=== PATIENT | female | born 1995 ===

== ENCOUNTER → 2016-04-10 | Day surgery (SDC) | payer BC, OTHER ==
[2016-03-22 09:29] VITALS: Ht 162.6 cm; Wt 60.0 kg
[~2016-04-10] VITALS: Ht 162.6 cm; Wt 60.0 kg
[~2016-04-10] MED LIST: ATROPINE SULFATE 0.1 MG/ML 5ML SYR IV PRN; BCPILLS PO; BUPIVACAINE/EPINEPHRINE 0.5% MPF 1:200,000 30 ML VIAL ONE; CEFAZOLIN 2000 MG/60 ML D5W IV SCH; DEXAMETHASONE SOD INJ 4 MG/ML VIAL ONE; EpHEDrine SULFATE INJ 50 MG/ML AMP IV PRN; FENTANYL CITRATE INJ 50 MCG/1 ML 2 ML VIAL IV PRN; FENTANYL CITRATE INJ 50 MCG/1 ML 2 ML VIAL ONE; FEXO1TAB46 PO; GLYCOPYRROLATE INJ 0.2 MG/ML VIAL ONE; LACTATED RINGER'S 1000ML 1,000 ML IV SCH; LEVOFLOXACIN 500 MG TAB PO SCH; LIDOCAINE HCL 2% 2 ML VIAL (20MG/ML) ONE; MIDAZOLAM HCL 1 MG/ML 2ML VIAL ONE; MULT-506 PO; NEOSTIGMINE METHYLSULFATE 5 MG/5 ML SYR ONE; ONDANSETRON INJ 2 MG/ML 2 ML VIAL IV PRN; ONDANSETRON INJ 2 MG/ML 2 ML VIAL ONE; PROPOFOL IV EMULSION 10 MG/ML 20 ML VIAL IV ONE; PSEU30TA20 PO; ROPIVACAINE 0.5% 5 MG/ML 30 ML VIAL ONE; SCOPOLAMINE 1.5 MG TDSY TD ONE; SODIUM CHLORIDE 0.9% 1000ML 1,000 ML IV SCH; SPIR50TA2 PO; VNTHFA/IN INH
--- NOTE | 2016-04-10 07:21 | History & Physical Bridge Note ---
H&P Re-Evaluation Bridge Note: I have examined the patient, reviewed the History & Physical and in the interval since the performance of the History & Physical I have noted the following changes of clinical significance: No changes noted
--- NOTE | 2016-04-10 07:23 | Discharge Instructions ---
Discharge Instructions Visit Reason for Visit: Right Glenohumeral Instability Discharge Discharge Diagnosis / Problem: same Discharge Goals Goal(s): Decrease discomfort, Improve function Medications Stopped Medications Name(s): na Restart Stopped Medication(s): use scripts as directed Activity Recommendations Activity Limitations: as noted below Lifting Limitations: until after follow-up appointment Exercise/Sports Limitations: until after follow-up appointment May Resume Sexual Activity: when tolerated Shower/Bathe: keep incision dry Driving or Machine Use: Anesthesia . Post Anesthesia Instructions: If you have had General Anesthesia or IV Sedation: * Do not drive today. * Resume driving when surgeon permits. * Do not make important decisions or sign legal documents today. * Call surgeon for: 1. Temperature elevations greater than 101 degrees F. 2. Uncontrollable pain. 3. Excessive bleeding. 4. Persistent nausea and vomiting. 5. Medication intolerance (nausea, vomiting or rash). * For nausea and vomiting use only clear liquids such as: tea, soda, bouillon until nausea subsides, then gradually increase diet as tolerated. * If you have any concerns or questions, call your surgeon's office. If physician is unavailable and it is an emergency, call 911 or go to the nearest emergency room. . Instructions / Follow-Up Instructions / Follow-Up The following are instructions to follow after "Shoulder Surgery" including, Acromioplasty, Rotator Cuff Repair and Instability Surgery ACTIVITY RECOMMENDATIONS: * Minimize activity after surgery. * No excessive walking, jogging, sports or laboring. * Return to activity is individualized depending on the patient and type of surgery. * Driving is not permitted until at least your first post operative visit. Please ask your doctor when it is safe to resume driving. * Expect increased discomfort with increased activity. Continue to ice the shoulder as needed. SCHOOL/WORK RECOMMENDATIONS: * You may return to sedentary work or school when you are feeling more comfortable. This is usually 3-7 days after surgery. MEDICATIONS: * You will have a prescription for pain medication and an anti-inflammatory medication after surgery. * Use the pain medication for severe pain and the anti-inflammatory for less severe pain. Once the pain medication has run out, try to use the anti-inflammatory medication. If this is not effective, contact the office for assistance. * The pain medication may cause nausea, constipation and drowsiness. You should see how they affect you before driving or similar activity. * The anti-inflammatory medication may cause stomach upset and bleeding. If this occurs let your doctor know immediately . * Take a stool softener like Colace or a laxative like Senokot to prevent constipation. DIET: * Resume previous diet. SPECIAL CARE: ICE: You have the option of an ice cooler, gel packs or ice bags. * If you have an ice cooler, refer to the instructions for that device. The ice cooler may be used continuously. * If you do not have an ice cooler, you will need to use ice bags or gel packs. Do not apply ice directly to the skin. Use a thin dressing or meche shirt between the skin and ice bag. Apply ice for 20-30 minutes and repeat every 2-4 hours. This is especially important for the first 7-10 days after surgery. Once the pain improves, use ice as needed. ELEVATION: * You may be more comfortable sleeping in an upright position. Use the sling to elevate your arm. DRESSING: * Your dressing will be changed at your first therapy appointment approximately 4-5 days after surgery. Band-aids, tape strips or gauze may be applied. You may then change your dressing daily. * Reapply dressing followed by the EBIce cooling pad (if chosen) and then the sling. * Always wash your hands prior to touching the incision area. * Once the stitches are removed, you may leave the wound open to air or cover with gauze. * Expect some bloody drainage for the first few days after surgery. * Leave the tape strips, if present, in place for 5-7 days. * Band-aids and gauze may be changed daily. * There may be a gauze pad in your armpit area. This can be changed daily or replaced by a dry washcloth. SLING/BRACE: * You will need to use a sling or brace after surgery. The length of time the sling is used is dependent upon the type of surgery performed. * Arthroscopic Acromioplasty requires use of the sling for 2-4 weeks for comfort. * Labral procedures and Rotator Cuff Repairs require use of the sling for a longer period of time. Please check with your doctor prior to discontinuing the sling. BATHING: * You may shower or sponge-bathe immediately after surgery. The post operative shoulder dressing is mostly water-tight. You may shower right over this dressing, but be reasonably careful not to get the gauze or incision wet. * Once the dressing has been changed on the fourth or fifth day after surgery, you may shower and get the incision wet. * Wash with regular soap and water. * Do not bathe (submerge the incision), soak, swim or use a hot tub until the incision is completely healed over with normal skin and the doctor has given the OK to proceed. * There is no need to apply any ointments, powders or salves to your incision. * Do not apply alcohol or hydrogen peroxide directly to the incision. * Diluted peroxide (50:50 mixture with sterile saline) may be used to clean dried blood from around the incision area. THERAPY: * You will begin therapy four or five days after surgery. * Organized therapy with the therapist is important for the first 2-4 months after surgery depending on the type of procedure. During that time you will attend therapy 1-3 times per week. * You will also need to do daily exercises for range of motion and strength as instructed. * Patients who have a Capsular Shift Procedure will need to abide by temporary range of motion limitations. * Patients having Rotator Cuff Surgery are not allowed to actively lift their arms until 4-6 weeks after surgery. * Please check with your doctor regarding appropriate motion restrictions. FOLLOW UP VISIT: * If not already scheduled, please call the office at to schedule a follow-up appointment for 10 days after surgery and monthly thereafter. Diet Recommendations Recommended Home Diet: resume previous diet Procedures Procedures Performed: see op note Pending Studies Studies pending at discharge: no Medical Emergencies . Who to Call and When: Medical Emergencies: If at any time you feel your situation is an emergency, please call 911 immediately. . Non-Emergent Contact Non-Emergency issues call your: Specialist Call Non-Emergent contact if: temperature is above 101.5 . . "Provider Documentation" section prepared by Allen Dutta.
--- NOTE | 2016-04-10 10:48 | [facility] Post Operative Brief Note ---
Immediate Operative Summary Operative Date Apr 10, 2016. Pre-Operative Diagnosis Right shoulder glenohumeral instability Post-Operative Diagnosis Same as preop Procedure(s) Performed Right Shoulder Arthroscopy, Labral And Capsular Repair Surgeon Dr. Dutta Supervisor Instrument Mechanics Surgeon(s) Artis Collins PA-C Estimated Blood Loss trace Findings capsular redundancy/posterior labral tear Fluids (cc crystalloids) 1100cc Specimens None Drains none Complication(s) None Disposition Recovery Room / PACU
--- NOTE | 2016-04-10 11:18 | OPERATIVE REPORT ---
DATE OF OPERATION: 04/10/2016 PREOPERATIVE DIAGNOSIS: Clinical instability with heavy activity right upper extremity. POSTOPERATIVE DIAGNOSIS: Same. OPERATION PERFORMED: 1. Exam under anesthesia. 2. Diagnostic arthroscopy. 3. Posterior labral repair and debridement. 4. Capsulorrhaphy anterior shoulder. 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 She has had symptoms for over a year. She notes that it feels like her arm goes posterior inferior and anterior inferior. Physical examination was consistent with posterior clicking, pain with posterior translation and anterior translation. Physical exam, x-ray and MRI scan revealed some subtle changes on posterior capsule and the labrum. As a result, it was deemed appropriate to proceed with surgery. DESCRIPTION OF PROCEDURE: The patient was properly identified, site verified, consent verified, 2 grams of Ancef confirmed as being given. The shoulder was examined revealing posterior perching and anterior perching, and there was clicking as well. There was no true dislocatability. She was then carefully placed in the left lateral decubitus position and right upper extremity prepped and draped in usual routine fashion. Posterior portal made 2 cm medial and inferior to posterolateral tip of the acromion and anterior portal made just off the edge AC joint. The joint was then entered. There was some posterior scuffing of the humeral head. This was debrided. The scope was placed anteriorly, the shaver posteriorly. It should be mentioned that exchange rods were utilized and plastic cannula were placed. This allowed easy interchangeablity of the scope and the roxie. Once the labrum was debrided, there were some cartilage flapping which was also debrided posteriorly. An accessory posterior portal made with spinal needle localization. The bare bone of the glenoid was then well bleeding, it was micro picked as well. Two sutures were then placed using a tight left exchanging through the posterior cannulas looking anteriorly, good grasp of the labrum was obtained and then drilling from the accessory portal anchor was placed at two 9 anchor with excellent purchase and excellent stability of the posterior inferior glenoid labrum and the posterior inferior glenoid ligament, you can see the ligament tighten up. This decreased the space posteriorly. Looking from posterior, the anterior capsule was then felt to be slightly redundant. As a result, a tight right was utilized and a suture passed through the capsule, then through the labrum attached to the inferior glenoid. This was then tied with a sliding Lamoille type knot and then locked with 2 half hitches. A good capsulorrhaphy was obtained. Looking from anterior one could see the redundancy of the capsule was eliminated local and looking posteriorly the redundancy was gone and the labrum was repaired and there was good centralization of the humeral head. The procedure was then terminated. All instruments and fluid removed. The portals closed with 3-0 nylon, dressed appropriately and the arm placed in a sling. Estimated blood loss trace. Crystalloid roughly 1100 mL. No DVT prophylaxis required. I attest to the content of the Intraoperative Record and any orders documented therein. Any exceptions are noted below. FAVIOLAD
--- NOTE | 2016-04-10 11:33 | OPERATIVE REPORT ---
DATE OF OPERATION: 04/10/2016 PREOPERATIVE DIAGNOSIS: Right shoulder glenohumeral instability. POSTOPERATIVE DIAGNOSIS: Right shoulder same. PROCEDURE: Right shoulder arthroscopy with labral and capsular repair. SURGEON: Dr. Dutta. INDUSTRIAL WELDER: Artis Collins PA-C. 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 She had one episode of true dislocation and multiple episodes of subluxation. She had tried conservative care measures without success and elected to proceed with surgical intervention in hopes of alleviating her instability. Preoperative x-rays and MRI were obtained. OPERATION: The patient was administered a scalene nerve block and then taken to the operating room where she was given general anesthesia. She was prepped and draped in the usual sterile fashion. Please see Dr. Dutta's operative report for specifics of the procedure. I was present for the entire case from initial patient positioning through final wound closure. Assistance was provided in patient positioning, arthroscopy, hardware placement, and final wound closure. The patient was taken to the recovery room in satisfactory condition. I attest to the content of the Intraoperative Record and any orders documented therein. Any exceptio ns are noted below.
[2016-04-10 12:18] VITALS: TEMP 36.7
[2016-04-10 13:10] VITALS: BP 119/85; PULSE 76; O2SAT 99
--- NOTE | 2016-04-10 13:43 | Anesthesia Progress Nt - [facility] ---
Anesthesia Post Op Note Date & Time Apr 10, 2016 at 13:43 Vital Signs Pain Intensity: 2 Vital Signs Past 12 Hours Date Time Temp Pulse Resp B/P Pulse Ox O2 Delivery O2 Flow Rate FiO2 04/10/16 13:10 76 16 119/85 99 Room Air 04/10/16 12:45 67 14 120/71 99 Room Air 04/10/16 12:18 36.7 72 16 125/84 100 Room Air 04/10/16 12:04 70 20 100 04/10/16 12:04 70 20 04/10/16 12:03 36.6 69 18 124/87 100 Room Air 04/10/16 12:03 124/87 04/10/16 11:59 70 18 04/10/16 11:59 74 18 100 04/10/16 11:58 124/79 04/10/16 11:54 69 23 04/10/16 11:54 73 23 98 04/10/16 11:53 121/77 04/10/16 11:49 78 14 04/10/16 11:49 78 14 99 04/10/16 11:48 139/77 04/10/16 11:47 83 18 04/10/16 11:47 82 18 100 04/10/16 11:43 120/77 04/10/16 11:42 68 15 04/10/16 11:42 67 15 100 04/10/16 11:38 122/79 04/10/16 11:37 74 16 100 04/10/16 11:37 75 16 04/10/16 11:33 135/85 04/10/16 11:32 81 19 04/10/16 11:32 79 19 100 04/10/16 11:28 127/85 04/10/16 11:27 92 16 04/10/16 11:27 90 16 100 04/10/16 11:23 132/81 04/10/16 11:22 110 16 04/10/16 11:22 112 16 100 04/10/16 11:18 36.4 110 20 136/94 100 Diffusion Mask 6 04/10/16 11:18 123/85 04/10/16 11:17 127 04/10/16 11:17 127 100 04/10/16 11:16 136/94 04/10/16 09:36 78 0 100 04/10/16 09:36 78 2/17 09:35 48 17 100 2//17 09:35 48 2//17 09:33 106/70 2//17 09:30 51 2//17 09:30 52 17 100 2//17 09:28 113/64 2/17 09:25 47 2/21/17 09:25 46 15 100 2/17 09:23 106/62 2/17 09:20 49 2/17 09:20 48 19 100 2/17 09:18 125/63 2/17 09:15 49 2/17 09:15 49 16 100 2/17 09:13 118/62 2/17 09:10 62 23 100 2/17 09:10 60 2/17 09:08 115/74 2/17 09:05 70 21 100 2/17 09:05 72 2/17 09:03 120/66 217 09:00 58 2/17 09:00 62 35 100 2/17 08:59 72 2/17 08:59 77 23 99 2/17 08:58 58 21 112/65 99 2/17 08:58 57 2//17 08:58 58 21 112/65 99 2/17 08:58 57 //17 08:53 53 2//17 08:53 53 2//17 08:53 55 20 122/63 98 2/17 08:53 55 20 122/63 98 2/17 08:48 65 2//17 08:48 65 2//17 08:48 57 13 121/78 2//17 08:48 57 13 121/78 2/21/17 08:43 56 2/21/17 08:43 53 0 122/68 98 2/21/17 08:43 56 2/21/17 08:43 53 0 122/68 98 2/21/17 08:38 49 0 115/71 2/21/17 08:38 49 0 115/71 2/21/17 08:33 53 0 116/71 98 2/21/17 08:33 53 0 116/71 98 2/21/17 08:33 58 2/21/17 08:33 58 04/10/16 08:31 119/71 04/10/16 08:31 119/71 04/10/16 08:28 62 0 98 04/10/16 08:28 67 04/10/16 08:28 62 0 98 04/10/16 08:28 67 04/10/16 08:23 58 0 98 04/10/16 08:23 58 0 98 04/10/16 08:23 58 04/10/16 08:23 58 04/10/16 08:18 56 04/10/16 08:18 53 0 98 04/10/16 08:18 53 0 98 04/10/16 08:18 56 04/10/16 08:13 69 04/10/16 08:13 67 0 99 04/10/16 08:13 69 04/10/16 08:13 67 0 99 04/10/16 08:08 64 04/10/16 08:08 64 04/10/16 08:08 64 98 04/10/16 08:08 64 98 04/10/16 08:03 60 19 04/10/16 08:03 59 19 98 04/10/16 08:03 59 19 98 04/10/16 08:03 60 19 04/10/16 07:58 67 18 98 04/10/16 07:58 68 18 04/10/16 07:58 67 18 98 04/10/16 07:58 68 18 04/10/16 07:53 62 13 04/10/16 07:53 62 13 04/10/16 07:53 63 13 99 04/10/16 07:53 63 13 99 04/10/16 07:25 36.6 85 16 127/78 100 Room Air Notes Mental Status: alert / awake / arousable, participated in evaluation Pt Amnestic to Procedure: Yes Nausea / Vomiting: adequately controlled Pain: adequately controlled Airway Patency, RR, SpO2: stable & adequate BP & HR: stable & adequate Hydration State: stable & adequate Anesthetic Complications: no major complications apparent
== END | disposition home or self-care (01) ==
LOC: X.SURG 07:12
PROVIDERS: ATTEND Physical Medicine & Rehabilitation Sports Medicine
DX: M25.311 Other instability, right shoulder (principal)

== ENCOUNTER → 2016-05-07 | Outpatient (CLI) | payer BC, OTHER ==
[~2016-05-07] MED LIST changes: -ATROPINE SULFATE 0.1 MG/ML 5ML SYR IV PRN; -BUPIVACAINE/EPINEPHRINE 0.5% MPF 1:200,000 30 ML VIAL ONE; -CEFAZOLIN 2000 MG/60 ML D5W IV SCH; -DEXAMETHASONE SOD INJ 4 MG/ML VIAL ONE; -EpHEDrine SULFATE INJ 50 MG/ML AMP IV PRN; -FENTANYL CITRATE INJ 50 MCG/1 ML 2 ML VIAL IV PRN; -FENTANYL CITRATE INJ 50 MCG/1 ML 2 ML VIAL ONE; -GLYCOPYRROLATE INJ 0.2 MG/ML VIAL ONE; -LACTATED RINGER'S 1000ML 1,000 ML IV SCH; -LEVOFLOXACIN 500 MG TAB PO SCH; -LIDOCAINE HCL 2% 2 ML VIAL (20MG/ML) ONE; -MIDAZOLAM HCL 1 MG/ML 2ML VIAL ONE; -NEOSTIGMINE METHYLSULFATE 5 MG/5 ML SYR ONE; -ONDANSETRON INJ 2 MG/ML 2 ML VIAL IV PRN; -ONDANSETRON INJ 2 MG/ML 2 ML VIAL ONE; -PROPOFOL IV EMULSION 10 MG/ML 20 ML VIAL IV ONE; -ROPIVACAINE 0.5% 5 MG/ML 30 ML VIAL ONE; -SCOPOLAMINE 1.5 MG TDSY TD ONE; -SODIUM CHLORIDE 0.9% 1000ML 1,000 ML IV SCH
== END | disposition home or self-care (01) ==
LOC: C.RDSM 10:30
PROVIDERS: ATTEND Physical Medicine & Rehabilitation Sports Medicine
DX: M25.311 Other instability, right shoulder (principal); M67.919 Unspecified disorder of synovium and tendon, unspecified shoulder

== ENCOUNTER → 2016-06-25 | Outpatient (CLI) | payer BC, OTHER | END | disposition home or self-care (01) | LOC: C.RDSM 10:35 | PROVIDERS: ATTEND Physical Medicine & Rehabilitation Sports Medicine | DX: M25.311 Other instability, right shoulder (principal) ==